=== PATIENT | female | born 1995 | race Native Hawaiian/Other Pacific Islander ===

== ENCOUNTER 2016-10-17 21:39 | Emergency (ER) | payer OTHER ==
[2016-10-17] MEDS: 0.9 % SODIUM CHLORIDE 1,000 ML IV ONE ×2 (22:20→23:26)
[2016-10-17] MEDS: ONDANSETRON HCL/PF 4 MG/ 2ML VIAL IVP ONE (22:20)
--- NOTE | 2016-10-18 00:36 | ED Physician Documentation ---
General Adult - HISTORIAN Historian: patient - HPI Stated Complaint: nausea and vomiting Chief Complaint: General Adult Additional Information: Nausea and vomigint for 2 weeks, intermittent. Vomited x3 today. Urine x2. Resident at [facility]. Received zofran at 1700, phenergan 1900. Chest hurts with deep breath since 1600 today, - ROS CONST: no problems - PAST HX Past History: other (heroin addiction) Surgeries/Procedures: none Allergies/Adverse Reactions: Allergies Allergy/AdvReac Type Severity Reaction Status Date / Time Penicillins Allergy Intermediate Hives Verified 10/17/16 22:35 Home Medications: Ambulatory Orders Medication Instructions Recorded Omeprazole [Prilosec] 40 mg PO D 10/17/16 Ondansetron HCl Rapdis [Zofran ODT] 1 tab SL DIRECTED 10/17/16 Promethazine HCl [Phenergan] 25 mg IM DIRECTED 10/17/16 Promethazine HCl [Phenergan] 25 mg PO DIRECTED 10/17/16 - SOCIAL HX Smoking History: cigarettes Alcohol Use: occasionally Drug Use: heroin, other - FAMILY HX Family History: No - REVIEWED ASSESSMENTS Nursing Assessment Reviewed: Yes Vitals Reviewed: Yes Progress - Progress Progress: 2250, says stomach feels much better. No urine output yet. 2330, urine sp gr 1.020. ED Results Lab/Radiology - Orders Orders: ED Orders Category Date Time Status Place IV Lock 1T Care 10/17/16 21:55 Active DRUG SCREEN URINE MEDICAL ONLY Routine Lab 10/17/16 Ordered ETHANOL MEDICAL USE ONLY Stat Lab 10/17/16 Ordered UA W/MICRO IF INDICATED Routine Lab 10/17/16 21:55 Ordered URINE HCG [URINE HCG] Stat Lab 10/17/16 Uncollected 0.9 % Sodium Chloride [Normal Saline] 1,000 ml Med 10/17/16 21:55 Active IV Q1H Ondansetron HCl/Pf [Zofran 4 mg/2 ml] Med 10/17/16 21:57 Discontinued 4 mg IVP NOW ONE General Adult Physical Exam - PHYSICAL EXAM GENERAL APPEARANCE: mild distress (appears tired) EENT: eye inspection normal, ENT inspection normal NECK: normal inspection, supple RESPIRATORY: no resp distress, breath sounds normal, other (palpation of sternal borders reproduces her pain) CVS: reg rate & rhythm, heart sounds normal ABDOMEN: soft, no organomegaly, normal bowel sounds, non-tender RECTAL: deferred BACK: normal inspection SKIN: warm/dry, normal color EXTREMITIES: normal range of motion (gait), no evidence of injury NEURO: CN's nml as tested, motor nml, sensation nml, cognition normal Discharge Clincal Impression: Nausea and vomiting Referrals: Jaden Shields MD [Primary Care Provider] - 2 Days Home Medications: Ambulatory Orders Omeprazole [Prilosec] 40 mg PO D 10/17/16 Ondansetron HCl Rapdis [Zofran ODT] 1 tab SL DIRECTED 10/17/16 Promethazine HCl [Phenergan] 25 mg IM DIRECTED 10/17/16 Promethazine HCl [Phenergan] 25 mg PO DIRECTED 10/17/16 Condition: Good Disposition: 01 HOME, SELF-CARE Decision to Admit: NO Decision Time: 23:30
[2016-10-18 01:30] VITALS: BP 129/73
[2016-10-18 05:42] LABS: APPEARANCE,URINE CLEAR (CLEAR); COLOR,URINE YELLOW (YELLOW); OCCULT BLOOD,URINE NEGATIVE (NEGATIVE); URINE HCG NEGATIVE (NEGATIVE); UROBILINOGEN URINE 0.2 Eu (0.2-1.0)
== END 2016-10-18 00:57 | disposition home or self-care (01) ==
LOC: ED 21:39
DX: R11.2 Nausea with vomiting, unspecified (principal)
CPT/HCPCS: 81002; 81025; J2405; J7030; 96361; 96374; 99283; S1016